=== PATIENT | male | born 1950 | race Caucasian/White ===

== ENCOUNTER → 2017-06-01 | Outpatient (CLI) | payer OTHER, BC ==
[~2017-06-01] VITALS: Ht 180.3 cm; Wt 95.3 kg
[~2017-06-01] MED LIST: ASPIR 8181 MG PO; BYSTOLIC 5 MG5 M1 PO; LIPITOR10 MG PO
--- NOTE | ~2017-06-01 | EKG ---
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
--- NOTE | ~2017-06-01 | CATHLAB ---
[facility] [employer] [place] [address] INVASIVE PROCEDURE REPORT Name: MOLLY SCHULTZ [facility] #: REG RIKI Hopper#: [id number] Admission: 06/01/17 Attend Phys: Cisco Jack, Discharge: Date of : 54 Date of Service: 06/01/17 1537 Report #: [id number] THIS REPORT FOR: //name// APPROVED REPORT Patient Details Patient Status: Out-Patient Room #: The patient is a 67 year-old male Event Personnel Cisco Jack Multimedia Engineer, Jazmyn Almanza RN RN, Sesar Zuluaga Monitor Procedures Performed Left Heart Cath w/or w/o Coronaries [id number] [facility] , Left Heart CatheterizationAortogram Abdominal Peripheral Angio 831736 , Aortogram Procedure Narrative The Right Groin^ was infiltrated with 1% Lidocaine subcutaneous anesthesia. A PINNACLE 6FR Sheath #[id number] sheath was inserted into the RFA^. Coronary angiography was performed using coronary diagnostic catheters. The right coronary system was accessed and visualized with a JR4 catheter. The left coronary system was accessed and visualized with a JL4 catheter. The left ventricle was accessed and visualized with a PIGTAIL catheter. An aortogram of the abdominal aorta was performed. Closure device was deployed with a 6 Fr MYNXGRIP 6/7F #[id number]. The patient tolerated the procedure well and there were no complications associated with the procedure. There was no hematoma. Intraoperative Conscious Sedation Sedation start time: 8:46 Case end Time: 0:06 Fentanyl 75.0 mcg Versed 2.0 mg Fluoro Time: 1.56 minutes Dose: 548 mGy Contrast Type and Amount: Omnipaque 120 ml Hemodynamics The aortic pressure is 116/69 mmHg with a mean of 89 mmHg. The left ventricular pressure is 139/14 mmHg with a mean of mmHg. The left ventricular end diastolic pressure is 21 mmHg. [facility] [employer] [place] [address] INVASIVE PROCEDURE REPORT Name: MO[place] SCHULT[place] [facility] #: [facility] [id number] Admission: 06/01/17 Attend Phys: Cisco Jack, Discharge: Date of : 54 Date of Service: 06/01/17 1537 Report #: [id number] Conclusion #1 left main mildly calcified with mild irregularity giving rise to LAD and circumflex #2 LAD extends around the apex. There significantly heavy calcification proximal and mid vessel. Mild to moderate irregularities in the mid vessel has an eccentric lesion in the 60-70% range but is not appear to be flow-limiting and smooth filling relatively small diffusely diseased wraparound LAD. #3 ramus branch with mild irregularity in proximal calcification moderate in size #4 nondominant circumflex OM with mild disease #5 dominant right coronary artery with proximal calcification and mild diffuse distal disease relatively small PDA and BERONICA but patent #6 normal left ventricular size and systolic function EF 55-60% #7 abdominal aorta intact with mild plaquing single bilateral renal arteries are patent and mild iliac plaquing noted but widely patent no aneurysm is noted in the aorta. Recommendations and plan we'll continue aggressive risk factor modification will increase Lipitor to 20 mg a day try to drive LDL less than 50. Patient has a coronary calcium score 4500 which is evident by the significant coronary calcium noted on this angiography. A moderate LAD lesion without symptoms or significant stress abnormality. We'll continue to treat aggressively. No lifting for 48 hours to line tub Jacuzzi or Caceres for a week. Follow-up lipid with Dr. Bryan estrada in 2 months I will also see him in 2 months. I will recommend probable pharmacologic nuclear stress testing before the end of the year looking for anterior wall ischemia. But there was not clear evidence but equivocal findings on stress echo. Extent of calcification and the moderate nature of the mid LAD lesion I would continue to treat this medically. Long discussion with family patient and regarding this plan. I have added 2.5 mg of by systolic to his regimen. <ELECTRONICALLY SIGNED> By: Cisco Jack MD, FACC 06/01/17 1537 36 36 Cisco Jack MD, FACC /INF
[2017-06-01 07:33] VITALS: BP 129/78
[2017-06-01 07:55] LABS: HEMATOCRIT 41.1 % (42.0-52.0); HEMOGLOBIN 13.9 gm/dL (14.0-18.0); MCHC 33.9 g/dL (28.0-37.0); MCV 91.5 fL (80.0-100.0); RBC 4.49 mil/uL (4.50-6.00); RDW 13.6 % (10.5-14.5); WBC 5.3 thou/uL (4.0-11.0)
[2017-06-01 08:06] LABS: CALCIUM 8.7 mg/dL (8.5-10.1); CREATININE 0.9 mg/dL (0.7-1.3); POTASSIUM 4.1 mmol/L (3.5-5.1)
== END | disposition home or self-care (01) ==
LOC: CATH 06:55
PROVIDERS: Internal Medicine Cardiovascular Disease
DX: I25.10 Atherosclerotic heart disease of native coronary artery without angina pectoris (principal)

== ENCOUNTER → 2020-05-28 | Outpatient (CLI) | payer OTHER, BC | LOC: SJCVC 10:18 | PROVIDERS: ATTEND Internal Medicine Cardiovascular Disease | DX: I25.10 Atherosclerotic heart disease of native coronary artery without angina pectoris (principal); I10 Essential (primary) hypertension; E78.00 Pure hypercholesterolemia, unspecified; I73.9 Peripheral vascular disease, unspecified; Z79.899 Other long term (current) drug therapy; Z87.891 Personal history of nicotine dependence ==

== ENCOUNTER → 2021-04-19 | Outpatient (CLI) | payer OTHER, BC | LOC: SJCVCIMAG 07:15 | PROVIDERS: ATTEND Internal Medicine Cardiovascular Disease | DX: I49.3 Ventricular premature depolarization (principal); I25.10 Atherosclerotic heart disease of native coronary artery without angina pectoris; I10 Essential (primary) hypertension; E78.5 Hyperlipidemia, unspecified; R06.09 Other forms of dyspnea; R53.83 Other fatigue ==

== ENCOUNTER → 2021-04-22 | Outpatient (CLI) | payer OTHER, BC | LOC: SJCVC 09:45 | PROVIDERS: ATTEND Internal Medicine Cardiovascular Disease | DX: R94.39 Abnormal result of other cardiovascular function study (principal); I25.10 Atherosclerotic heart disease of native coronary artery without angina pectoris; E78.00 Pure hypercholesterolemia, unspecified; I10 Essential (primary) hypertension; I77.9 Disorder of arteries and arterioles, unspecified; F51.04 Psychophysiologic insomnia; J44.9 Chronic obstructive pulmonary disease, unspecified; E78.5 Hyperlipidemia, unspecified; M19.90 Unspecified osteoarthritis, unspecified site; R73.03 Prediabetes; M65.30 Trigger finger, unspecified finger; E55.9 Vitamin D deficiency, unspecified; Z87.891 Personal history of nicotine dependence; Z79.82 Long term (current) use of aspirin; Z79.899 Other long term (current) drug therapy; Z87.440 Personal history of urinary (tract) infections; Z88.1 Allergy status to other antibiotic agents; Z82.49 Family history of ischemic heart disease and other diseases of the circulatory system ==

== ENCOUNTER → 2021-04-28 | Outpatient (CLI) | payer OTHER, BC ==
[~2021-04-28] VITALS: Ht 182.9 cm; Wt 95.4 kg
[~2021-04-28] MED LIST changes: +LIPITOR 20 MG T20 M1 PO; +SUPER THERAVIT1 EACH PO; +VITAMIN D350 MC3 PO; +ZETIA10 MG PO
[2021-04-28 08:17] VITALS: BP 125/76
--- NOTE | 2021-04-28 17:51 | CATHLAB ---
[facility] [place] [address] INVASIVE PROCEDURE REPORT Name: MOLLY SCHULTZ Room #: REG DEMETRIO Ambrose.#: [id number] Admission: 04/28/21 Attend Phys: Cisco Jack MD, Discharge: Date of : 54 Report #: [id number] THIS REPORT FOR: cc: Mendoza Edward MD, Michael D. MD Mancuso, Gerald M. MD [facility] ~ APPROVED REPORT Study performed: 04/28/2021 10:14:28 Patient Details Patient Status: Out-Patient Room #: The patient is a 71 year-old male Event Personnel Cisco Jack Trust Manager Assistant, Agnes Thomas RN RN, Jaren Joiner RTR ScrubMerissa Nancy RTR, [employer] SUPERVISOR Monitor Procedures Performed Art Access - R femoral artery* Left Heart Cath w/or w/o Coronaries [id number] [facility] Aortogram Abdominal Peripheral Angio 624713 80052 Initial Mod Sed Same Phys/QHP Gr 255635 98124 Mod Sed Same Phys/QHP Ea 522169 Hemostasis w/ Mynx Indication Positive stress test Procedure Narrative The Right Groin^ was infiltrated with 1% Lidocaine subcutaneous anesthesia. A PINNACLE 6FR Sheath #[id number] sheath was inserted into the RFA^. Coronary angiography was performed using coronary diagnostic catheters. The right coronary system was accessed and visualized with a JR4 catheter. The left coronary system was accessed and visualized with a JL4 catheter. The left ventricle was accessed and visualized with a PIGTAIL catheter. Left ventriculogram was performed in 30 degree projection. An aortogram of the abdominal aorta was performed. Closure device was deployed with a 6 Fr MYNXGRIP 6/7F #[id number]. The patient tolerated the procedure well and there were no complications associated with the procedure. There was no hematoma. Intraoperative Conscious Sedation Sedation start time: 10:55 Case end Time: [facility] [place] [place] [address] INVASIVE PROCEDURE REPORT Name: MOLLY SCHULTZ [facility] [place] Room #: REG [facility]#: [id number] Admission: 04/28/21 Attend Phys: Cisco Jack, Discharge: Date of : 54 Report #: [id number] 11:26 Fentanyl 100 mcg Versed 2 mg Fluoro Time: 1.45 minutes Dose: DAP 3297.70 cGycm2 390 mGy Contrast Type and Amount: Omnipaque 105 ml Hemodynamics The aortic pressure is 124/63 mmHg with a mean of 88 mmHg. The left ventricular pressure is 136/11 mmHg with a mean of mmHg. The left ventricular end diastolic pressure is 18 mmHg. Conclusion #1. Normal left ventricular size and systolic function EF 55% #2 abdominal aortogram is intact without evidence of aneurysm mild plaquing is noted. #3 the left main mildly calcified widely patent giving rise to LAD and circumflex. #4 heavily calcified proximal mid LAD has moderate disease with an eccentric 70% lesion in the proximal mid vessel which does not appear to have progressed significantly since 2017 catheterization. Widely patent around the apex. Moderate disease in diagonal system also heavily calcified. #5 circumflex OM mildly calcified high rising OM branch which is large mildly diseased circumflex mildly diseased. #6 dominant right coronary artery with mild disease eccentric 30 to 40% mid distal giving rise to PDA BERONICA small but diffusely diseased but patent Recommendations and plan: Continue aggressive risk factor modification. No indication for coronary intervention. Heavily calcified system but no high-grade occlusive disease. The LAD lesion has not significantly progressed. Patient asymptomatic. Subtle findings noted on stress testing. <ELECTRONICALLY SIGNED> By: Cisco Jack MD, FACC 04/28/211750 50 50 Cisco Jack MD, FACC /INF
--- NOTE | 2021-04-29 08:22 | EKG ---
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 : 1950 Requested By: Cisco Jack Order Number: [id number] MD: Du Garcia Measurements Intervals [place] Rate: 61 P: 57 HI: 193 QRS: 37 QRSD: 102 T: 18 QT: 403 QTc: 406 Interpretive Statements Sinus rhythm Low voltage, precordial leads Compared to ECG 06/01/2017 07:36:28 Low QRS voltage now present ST (T wave) deviation no longer present Electronically Signed On 04-29-2021 7:00:36 CDT by Du Garcia [email or web address] <ELECTRONICALLY SIGNED> By: Du Garcia MD, [facility] 04/29/21 0700 6 6 Du Garcia MD, [facility] /EPI
== END | disposition home or self-care (01) ==
LOC: CATH 07:41
PROVIDERS: ATTEND Internal Medicine Cardiovascular Disease
DX: R94.39 Abnormal result of other cardiovascular function study (principal); I25.10 Atherosclerotic heart disease of native coronary artery without angina pectoris; I10 Essential (primary) hypertension; E78.5 Hyperlipidemia, unspecified; J44.9 Chronic obstructive pulmonary disease, unspecified; F51.04 Psychophysiologic insomnia; Z98.890 Other specified postprocedural states; Z79.899 Other long term (current) drug therapy; Z82.49 Family history of ischemic heart disease and other diseases of the circulatory system; Z79.82 Long term (current) use of aspirin; Z90.49 Acquired absence of other specified parts of digestive tract; Z87.891 Personal history of nicotine dependence; Z88.8 Allergy status to other drugs, medicaments and biological substances